=== PATIENT | female | born 1970 | race Caucasian/White ===

== ENCOUNTER 2020-09-19 20:27 | Emergency (ER) | payer SELFPAY ==
[~2020-09-19] VITALS: Ht 157.5 cm; Wt 127.0 kg
[2020-09-19 20:55] VITALS: BP 169/90
--- NOTE | 2020-09-19 20:58 | NUR ---
TO LOBBY A/W BED AMBULATORY
[2020-09-19] MEDS ORDERED: MORPHINE SULFATE 4 MG/ML SYR IM ONE (21:55)
[2020-09-19] MEDS ORDERED: HYDROcodone/APAP 5/325 MG 1 TAB TAB ONE (22:34)
[2020-09-19] MEDS ORDERED: HYDROcodone/APAP 5/325 MG 1 TAB TAB PO ONE (22:35)
--- NOTE | 2020-09-19 22:55 | NUR ---
Taken to CT via w/c
[2020-09-19 23:08] VITALS: BP 155/77
== END 2020-09-20 00:45 | disposition home or self-care (01) ==
LOC: MED 20:27
DX: S20.211A Contusion of right front wall of thorax, initial encounter (principal); S30.1XXA Contusion of abdominal wall, initial encounter; Z98.890 Other specified postprocedural states; V89.2XXA Person injured in unspecified motor-vehicle accident, traffic, initial encounter; Y93.89 Activity, other specified; Y92.410 Unspecified street and highway as the place of occurrence of the external cause; Y99.8 Other external cause status
CPT/HCPCS: 71250; 81002; 81025; 99284; J2270